=== PATIENT | female | born 1995 | race Native Hawaiian/Other Pacific Islander ===

== ENCOUNTER 2017-02-15 21:54 | Outpatient (CLI) | payer MEDICAID ==
[2017-02-15 22:11] VITALS: BP 120/71
== END 2017-02-15 23:50 | disposition home or self-care (01) ==
LOC: TRG 21:54
PROVIDERS: ATTEND Obstetrics & Gynecology
DX: O47.1 False labor at or after 37 completed weeks of gestation (principal); Z3A.38 38 weeks gestation of pregnancy

== ENCOUNTER 2017-02-24 23:37 | Inpatient (IN) | payer MEDICAID ==
[2017-02-25] MEDS ORDERED: LACTATED RINGERS 1,000 ML ONE (00:28)
[2017-02-25] MEDS ORDERED: POLYCILLIN/NS 2 GM/100 ML 2 GM/100 ML BAG IV ONE (01:38)
[2017-02-25] MEDS ORDERED: SUBLIMAZE IV ONE (01:38)
[2017-02-25] MEDS ORDERED: POLYCILLIN/NS 1 GM/50 ML 1 GM/50 ML BAG IV SCH (02:00)
[2017-02-25] MEDS ORDERED: LACTATED RINGERS 1,000 ML IV SCH ×2 (02:00→07:00)
[2017-02-25 02:41] LABS: Basophils % (Auto) 0.5 % (0.0-1.8); Eosinophils % (Auto) 1.1 % (0.0-4.3); Hematocrit 35.4 % (30.3-42.9); Mean Corpuscular HGB Conc 34 % (30-34); Mean Corpuscular Hemoglobin 29 pg (28-32); Mean Corpuscular Volume 85 fl (79-97); Platelet Count 175 K/mm3 (140-440); Red Blood Count 4.16 M/mm3 (3.65-5.03); Red Cell Distribution Width 13.9 % (13.2-15.2); White Blood Count 8.5 K/mm3 (4.5-11.0)
[2017-02-25] MEDS: SUBLIMAZE IV PRN ×2 (03:31→06:21)
[2017-02-25] MEDS ORDERED: PITOCin/NS 20 UNIT/1000ML DRIP 20,000 MILLIUNITS/1,000 ML BAG IV ONE (06:11)
--- NOTE | 2017-02-25 06:11 | History and Physical Report ---
History of Present Illness Date of examination: 02/25/17 Date of admission: 02/25/17 00:12 Chief complaint: contractions History of present illness: 21 yo at 40 + 4 weeks came in labor noted to be 4cm. She has care with [facility] since 10 weeks. She is noted to be GBS +. Records reviewed Past History Past Medical History: other (gastritis, GERD) Past Surgical History: no surgical history Family/Genetic History: hypertension Social history: single. denies: smoking, alcohol abuse, prescription drug abuse - Obstetrical History Expected Date of Delivery: 02/28/17 Actual Gestation: 39 Week(s) 4 Day(s) : 1 Para: 0 Hx # Term Pregnancies: 0 Number of Pregnancies: 0 Spontaneous Abortions: 0 Induced : 0 Number of Living Children: 0 Medications and Allergies Allergies Allergy/AdvReac Type Severity Reaction Status Date / Time No Known Allergies Allergy Verified 02/25/17 01:35 Active Meds: Active Medications Fentanyl (Sublimaze) 100 mcg IV Q2H PRN PRN Reason: Pain , Severe (7-10) Last Admin: 02/25/17 03:31 Dose: 100 mcg Lactated Ringer's (Lactated Ringers) 1,000 mls @ 125 mls/hr IV DIRECT VALENTIN Ampicillin Sodium (Polycillin/Ns 1 Gm/50 Ml) 1 gm in 50 mls @ 100 mls/hr IV Q4HR VALENTIN PRN Reason: Protocol Review of Systems All systems: negative Genitourinary: contractions - Vital Signs Vital signs: Vital Signs Pulse Pulse Ox 75 82 L 02/24/17 23:52 02/24/17 23:52 Temp Pulse Resp BP Pulse Ox 98.3 F 72 20 125/65 63 L 02/25/17 01:00 02/25/17 03:18 02/25/17 01:00 02/25/17 03:18 02/24/17 23:53 - Physical Exam Breasts: Positive: normal Cardiovascular: Regular rate, Normal S1 Lungs: Positive: Clear to auscultation, Normal air movement Abdomen: Positive: normal appearance, soft, normal bowel sounds. Negative: distention, tenderness Genitourinary (Female): Positive: normal external genitalia, normal perenium Vulva: both: normal Vagina: Positive: normal moisture Uterus: Positive: normal size Anus/Rectum: Positive: normal perianal skin Extremities: Positive: normal Deep Tendon Reflex Grade: Normal +2 - Obstetrical FHR: category 1 Uterine Contraction Monitor Mode: External Cervical Dilatation: 4 Cervical Effacement Percentage: 70 station: -2 Uterine Contraction Pattern: Regular Uterine Tone Measurement Phase: Contraction Uterine Contraction Intensity: Moderate Results Result Diagrams: 02/25/17 01:15 Abnormal lab results 02/25/17 Range/Units 01:15 [place] % (Auto) 7.5 H (0.0-7.3) % All other labs normal. Assessment and Plan A/P IUP 40 weeks term vertex GBS + ampicillin ivf, labs offer epidural expect vaginal delivery
[2017-02-25] MEDS ORDERED: XYLOCAINE 2% INFILTRATI ONE (06:15)
[2017-02-25] MEDS ORDERED: NARCAN 0.4 MG/1 ML IV PRN (06:15)
[2017-02-25] MEDS ORDERED: STADOL IV PRN (06:15)
[2017-02-25] MEDS ORDERED: ePHEDrine SULFATE IV PRN (06:15)
[2017-02-25] MEDS ORDERED: PHENERGAN PR PRN ×2 (06:15→07:30)
[2017-02-25] MEDS ORDERED: MINERAL OIL PO PRN (06:15)
[2017-02-25] MEDS ORDERED: ZOFRAN IV PRN ×2 (06:15→07:30)
[2017-02-25] MEDS ORDERED: BRETHINE SUB-Q PRN (06:15)
[2017-02-25] MEDS ORDERED: BRETHINE IVP PRN (06:15)
--- NOTE | 2017-02-25 06:22 | Event Note ---
Date: 02/25/17 Patient laying in bed pain reported as 11/25 vss cervical check 7//-1 Arom meconium light -notified peds cat 1 expect vaginal delivery
[2017-02-25] MEDS ORDERED: METHERGINE IM ONE (06:54)
[2017-02-25] MEDS ORDERED: PITOCin/NS 20 UNIT/1000ML DRIP 20 UNITS/1,000 ML BAG IV SCH (07:00)
[2017-02-25] MEDS ORDERED: PITOCin/NS 30 UNIT/500ML 30 UNITS/500 ML BAG IV SCH ×2 (07:00)
--- NOTE | 2017-02-25 07:07 | Procedure Note ---
OB Delivery Note - Delivery Date of Delivery: 02/25/17 Surgeon: ESAU CORREA Estimated blood loss: 500cc - Vaginal Delivery presentation: vertex Delivery position: OA Intrapartum events: none Delivery induction: none Delivery augmentation: rupture of membranes Delivery monitor: external FHT, external uterine Route of delivery: Delivery placenta: spontaneous Delivery cord: 3 umbilical vessels Episiotomy: none Delivery laceration: 1st degree Delivery repair: vicryl Anesthesia: none Delivery comments: Patient was noted to be c/c/+1 and commenced to pushing and delivered a viable female infant in direct OA. Shoulders easily delivered and baby placed on mom chest with Peds in attendance secondary to mecomium. Baby delivered at 0648 with a weight 7 pounds 1 ounce. Apgars 8 and 9. The cord was clamped and cut and placenta delivered intact with 3 vessel cord. Survey of perineum noted a 1st degree lac repaired in noraml fashion with 2-0 vicryl. EBL 500cc. Patient tolerated procedure well. baby and mom bonding .
[2017-02-25] MEDS ORDERED: TYLENOL PO PRN (07:30)
[2017-02-25] MEDS ORDERED: BENADRYL PO PRN (07:30)
[2017-02-25] MEDS ORDERED: LANSINOH TP PRN (07:30)
[2017-02-25] MEDS ORDERED: TUCKS PAD TP PRN (07:30)
[2017-02-25] MEDS ORDERED: PHENERGAN PO PRN (07:30)
[2017-02-25] MEDS ORDERED: PERCOCET 5/325 PO PRN (07:30)
[2017-02-25] MEDS ORDERED: SODIUM CHLORIDE FLUSH SYRINGE 10 ML IV PRN (08:00)
[2017-02-25] MEDS ORDERED: DULCOLAX PR PRN (10:00)
[2017-02-25] MEDS: NORCO 5/325 PO PRN ×2 (10:46→20:07)
[2017-02-25] MEDS: MOTRIN PO SCH ×4 (10:46→23:51)
[2017-02-25] MEDS: COLACE PO SCH ×2 (10:48→22:06)
[2017-02-25] MEDS: PRENATAL VITAMIN PO SCH (10:48)
[2017-02-25] MEDS: SENOKOT S PO SCH (20:00)
[2017-02-25] MEDS ORDERED: MILK OF MAGNESIA PO PRN (22:00)
[2017-02-25 23:57] LABS: Hematocrit 32.2 % (30.3-42.9); Hemoglobin 11.2 gm/dl (10.1-14.3)
[2017-02-26] MEDS: NORCO 5/325 PO PRN ×3 (01:52→16:23)
[2017-02-26] MEDS: MOTRIN PO SCH ×6 (05:39→23:51)
[2017-02-26] MEDS ORDERED: BOOSTRIX IM ONE (06:00)
--- NOTE | 2017-02-26 09:08 | Progress Note ---
Assessment and Plan A: PPD# 1 s/p at term P: Routine care. Anticipate discharge tomorrow. Subjective - Subjective Date of service: 02/26/17 Principal diagnosis: s/p at term Interval history: No overnight events. Pt c/o perineal pain but she has not yet been given Dermaplast. Patient reports: appetite normal, voiding normally, pain poorly controlled, ambulating normally [place]: doing well Objective - Vital Signs Latest vital signs: Vital Signs Temp Pulse Resp BP Pulse Ox 02/26/17 00:53 97.7 F 79 18 113/62 97 02/25/17 21:56 98 F 94 H 20 98/64 97 Intake and Output 02/25/17 02/26/17 02/26/17 22:59 06:59 14:59 Intake Total 240 120 Output Total 1200 Balance -960 120 Intake: Oral 240 120 Output: Urine 1200 Void 1200 Other: Total, Intake Amount 240 120 Total, Output Amount 800 # Voids Void 1 - Exam Breasts: Present: deferred Cardiovascular: Present: Regular rate Lungs: Present: Clear to auscultation Abdomen: Present: soft Uterus: Present: fundal height at umbilicus Extremities: Present: normal
--- NOTE | 2017-02-26 09:10 | Discharge Summary ---
Providers - Providers Date of Admission: 02/25/17 00:12 Date of discharge: 02/27/17 Attending physician: ESAU CORREA MD Primary care physician: ESAU CORREA MD Hospitalization Reason for admission: active labor Delivery: Procedure details: Please see delivery note. Episiotomy: none Laceration: 1st degree Other procedures: none complications: none Discharge diagnosis: IUP at term delivered baby: female Hospital course: Pt was admitted in active labor and tolerated well. Her course was uncomplicated and she met discharge criteria on PPD#2. Disposition: DC-01 TO HOME OR SELFCARE - Discharge Diagnoses (1) Obesity Status: Acute Qualifiers: Obesity type: O Obesity classification: O Serious obesity comorbidity presence: unspecified whether serious comorbidity present Body mass index: BMI 30.0-30.9 (2) Term of female Status: Acute Plan - Discharge Medications Prescriptions: Ferrous Sulfate [Feosol 325 MG tab] 325 mg PO BID #60 tablet HYDROcodone/APAP 5-325 [[place] 5/325] 1 each PO Q6HR PRN #30 tablet PRN Reason: Pain Ibuprofen [Motrin] 800 mg PO Q8HR PRN #30 tablet PRN Reason: Pain - Provider Discharge Summary Activity: routine, no sex for 6 weeks, no heavy lifting 4 weeks, no strenuous exercise Diet: routine Instructions: routine Additional instructions: [] Smoking cessation referral if applicable(refer to patient education folder for contact #) [] Refer to [facility]'s [facility] Booklet Call your doctor immediately for: * Fever > 100.5 * Heavy vaginal bleeding ( >1 pad per hour) * Severe persistent headache * Shortness of breath * Reddened, hot, painful area to leg or breast * Drainage or odor from incision. * Keep incision clean and dry at all times and follow doctor's instructions regarding bathing/showering - Follow up plan Follow up: ANGELITO KING CNM [Advanced Practice Nurse] - 03/25/17 (psotpartum exam- please call for appt )
[2017-02-26] MEDS ORDERED: DERMOPLAST TP PRN (09:30)
[2017-02-26] MEDS: COLACE PO SCH ×2 (09:47→22:06)
[2017-02-26] MEDS: PRENATAL VITAMIN PO SCH (09:47)
[2017-02-26] MEDS ORDERED: M-M-R II VACCINE SUB-Q ONE (10:00)
[2017-02-26] MEDS: SENOKOT S PO SCH (22:06)
[2017-02-27] MEDS: MOTRIN PO SCH ×2 (05:35→12:26)
[2017-02-27] MEDS: NORCO 5/325 PO PRN (12:25)
[2017-02-27] MEDS: COLACE PO SCH (12:26)
[2017-02-27] MEDS: SENOKOT S PO SCH (12:27)
[2017-02-27] MEDS: PRENATAL VITAMIN PO SCH (12:27)
[2017-02-27 17:41] VITALS: BP 104/57
== END 2017-02-27 16:30 | disposition home or self-care (01) | DRG 775 ==
LOC: TRG 23:37 → LD 02-25 00:12 → OB 02-25 09:29
PROVIDERS: ADMIT Obstetrics & Gynecology; ATTEND Obstetrics & Gynecology
PROC: 10E0XZZ Delivery of Products of Conception, External Approach (ICD-10-PCS; principal; 2017-02-25)
PROC: 0HQ9XZZ Repair Perineum Skin, External Approach (ICD-10-PCS; 2017-02-25)
PROC: 10907ZC Drainage of Amniotic Fluid, Therapeutic from Products of Conception, Via Natural or Artificial Opening (ICD-10-PCS; 2017-02-25)
PROC: 3E0234Z Introduction of Serum, Toxoid and Vaccine into Muscle, Percutaneous Approach (ICD-10-PCS; 2017-02-26)
DX: O99.824 Streptococcus B carrier state complicating childbirth (principal); Z37.0 Single live birth; O70.0 First degree perineal laceration during delivery; O99.214 Obesity complicating childbirth; E66.9 Obesity, unspecified; Z68.30 Body mass index [BMI] 30.0-30.9, adult; O99.62 Diseases of the digestive system complicating childbirth; K21.9 Gastro-esophageal reflux disease without esophagitis; Z82.49 Family history of ischemic heart disease and other diseases of the circulatory system; Z3A.39 39 weeks gestation of pregnancy; O77.0 Labor and delivery complicated by meconium in amniotic fluid; Z23 Encounter for immunization
CPT/HCPCS: 36415; 85014; 85018; 85025; 86592; 86850; 86900; 86901; 90707; 90715; 99211; A6250; G0463; J0290; J2210; J2590; J3010; J7120